=== PATIENT | male | born 1975 | race Caucasian/White ===

== ENCOUNTER 2018-12-29 08:54 | Emergency (ER) | payer BC ==
--- NOTE | 2018-12-29 09:01 | UC ---
Skin Complaint HPI - HPI Summary HPI Summary: 43 yo male presents with rash to left thigh. He tells me that about 10-12 days ago he was bitten by a tick in this area. He removed the tick, but was unsure how long it was attached. Did not think it was engorged. This morning he noticed a red ring rash to the site. He has had lyme disease before and states he thinks this is the bull's eye rash. He is feeling well otherwise and denies fever, pain, headache, fatigue. - History of Current Complaint Time Seen by Provider: 12/29/18 09:00 Stated Complaint: TICK BITE LT LEG Hx Obtained From: Patient Onset/Duration: Sudden Onset Current Severity: None - Allergy/Home Medications Allergies/Adverse Reactions: Allergies Allergy/AdvReac Type Severity Reaction Status Date / Time Sulfa (Sulfonamide Allergy Hives Verified 12/29/18 09:10 Antibiotics) nitrites Allergy Severe Nausea Uncoded 05/04/13 08:00 PMH/Surg Hx/FS Hx/Imm Hx - Additional Past Medical History Additional PMH: None - Surgical History Surgical History: Yes Surgery Procedure, Year, and Place: R elbow bone chip - Family History Known Family History: Positive: None - Social History Occupation: Employed Full-time Lives: With Family Alcohol Use: Occasionally Substance Use Type: None Smoking Status (MU): Never Smoked Tobacco Review of Systems All Other Systems Reviewed And Are Negative: Yes Constitutional: Positive: Negative Skin: Positive: Other - Tick bite Respiratory: Positive: Negative Cardiovascular: Positive: Negative Neurovascular: Positive: Negative Neurological: Positive: Negative Psychological: Positive: Negative Physical Exam - Summary Physical Exam Summary: GENERAL: NAD. WDWN. No pain distress. SKIN: Left proximal posterior thigh with 5.0cm diameter bull's eye rash. Mildly erythematous ring with central clearing. NTTP. No warmth, edema, or abscess appreciated. NECK: Supple. Nontender. No lymphadenopathy. CHEST: No accessory muscle use. Breathing comfortably and in no distress. CV: Pulses intact. Cap refill <2seconds NEURO: Alert. PSYCH: Age appropriate behavior. Triage Information Reviewed: Yes Vital Signs: Vital Signs: Temp Pulse Resp BP Pulse Ox 96.5 F 60 18 125/77 98 12/29/18 09:05 12/29/18 09:05 12/29/18 09:05 12/29/18 09:05 12/29/18 09:05 Vital Signs Reviewed: Yes Course/Dx - Course Course Of Treatment: Bull's eye rash s/p tick bite. Discussed with pt. Will start him with doxycycline for 2 weeks to treat for lyme disease. - Diagnoses Provider Diagnosis: Lyme disease Discharge - Sign-Out/Discharge Documenting (check all that apply): Patient Departure All imaging exams completed and their final reports reviewed: No Studies - Discharge Plan Condition: Stable Disposition: HOME Prescriptions: DOXYcycline CAP(*) [DOXYcycline 100MG CAP(*)] 100 mg PO BID #28 cap Patient Education Materials: Lyme Disease (ED), Tick Bite (ED) Referrals: Yunior Harrison MD [Primary Care Provider] - Additional Instructions: If you develop a fever, shortness of breath, chest pain, new or worsening symptoms - please call your PCP or go to the ED immediately. - Billing Disposition and Condition Condition: STABLE Disposition: Home
[2018-12-29 09:10] VITALS: BP 125/77
== END 2018-12-29 09:15 | disposition home or self-care (01) ==
LOC: UCEAST 08:54
DX: A69.20 Lyme disease, unspecified (principal); Z88.2 Allergy status to sulfonamides
CPT/HCPCS: 99202; G0463

== ENCOUNTER 2019-08-16 15:16 | Emergency (ER) | payer BC ==
[2019-08-16 15:30] VITALS: BP 156/79
[2019-08-16] MEDS ORDERED: Lidocaine 1% MPF ** 5 ML VIAL INJ ONE (15:40)
--- NOTE | 2019-08-16 15:43 | UC ---
Hand/Wrist HPI - HPI Summary HPI Summary: 43-year-old male comes in with a chief complaint of infected right middle finger. Patient reports he bites his finger nails. He has swelling and pain in the area. he tried to pop it with a needle but didn't work. No fevers and no chills no decreased sensation has full range of motion full-strength. - History Of Current Complaint Chief Complaint: UCUpperExtremity Stated Complaint: INFECTED FINGER Time Seen by Provider: 08/16/19 15:35 Pain Intensity: 2 - Allergies/Home Medications Allergies/Adverse Reactions: Allergies Allergy/AdvReac Type Severity Reaction Status Date / Time Sulfa (Sulfonamide Allergy Hives Verified 08/16/19 15:27 Antibiotics) nitrites Allergy Severe Nausea Uncoded 08/16/19 15:27 Home Medications: Home Medications DOXYcycline CAP(*) [DOXYcycline 100MG CAP(*)] 100 mg PO BID #20 cap 08/16/19 [Rx ] Mupirocin 1 applic TOPICAL BID #22 gm 08/16/19 [Rx] PMH/Surg Hx/FS Hx/Imm Hx Previously Healthy: Yes - Surgical History Surgical History: Yes Surgery Procedure, Year, and Place: R elbow bone chip - Family History Known Family History: Positive: None - Social History Alcohol Use: Weekly Substance Use Type: None Smoking Status (MU): Never Smoked Tobacco Review of Systems All Other Systems Reviewed And Are Negative: Yes Constitutional: Positive: Negative Skin: Positive: Other - see hpi Eyes: Positive: Negative ENT: Positive: Negative Respiratory: Positive: Negative Cardiovascular: Positive: Negative Gastrointestinal: Positive: Negative Motor: Positive: Negative Neurovascular: Positive: Negative Musculoskeletal: Positive: Negative Neurological/Mental Status: Positive: Negative Psychological: Positive: Negative Is Patient Immunocompromised?: No Physical Exam Triage Information Reviewed: Yes Appearance: Well-Appearing, No Pain Distress, Well-Nourished Vital Signs: Initial Vital Signs Temp 98.3 F 08/16/19 15:27 Pulse 69 08/16/19 15:27 Resp 18 08/16/19 15:27 BP 156/79 08/16/19 15:27 Pulse Ox 100 08/16/19 15:27 Vital Signs Reviewed: Yes Eye Exam: Normal Eyes: Positive: Conjunctiva Clear Neck: Positive: Supple Respiratory: Positive: No respiratory distress Musculoskeletal: Positive: Strength Intact, ROM Intact Neurological: Positive: Alert, Muscle Tone Normal Psychological: Positive: Age Appropriate Behavior Skin: Positive: Other - Right middle finger has a paronychia with swelling and erythema around the base of the fingernail. There is minimal swelling of the pad of the finger but it's not firm. Fingers full range of motion full- strength there is no drainage. No streaking. Procedures - Incision and Drainage Right Finger Site: right middle finger paronychia Anesthesia: Local, Lidocaine - with 1% Instrument(s): Scalpel - culture obtained Packing: Other - none Hand/Wrist Course/Dx - Course Course Of Treatment: Small amount of pus and blood came out during the incision and drainage which I did culture. Plan is to treat with topical mupirocin and by mouth doxycycline. Patient will follow-up with orthopedics hands if not improving or worse. Or they can return here for not improving or worse. - Differential Dx/Diagnosis Provider Diagnosis: Paronychia of right middle finger Discharge ED - Sign-Out/Discharge Documenting (check all that apply): Patient Departure All imaging exams completed and their final reports reviewed: No Studies - Discharge Plan Condition: Stable Disposition: HOME Prescriptions: DOXYcycline CAP(*) [DOXYcycline 100MG CAP(*)] 100 mg PO BID #20 cap Mupirocin 1 applic TOPICAL BID #22 gm Patient Education Materials: Paronychia (ED) Referrals: Abhijeet Lopez MD [Primary Care Provider] - Fabienne Chaparro MD [Medical Doctor] - Additional Instructions: FOLLOW UP WITH DR CHAPARRO, ORTHOPEDICS, IF NOT COMPLETELY IMPROVED. GET REEVALUATED SOONER IF NOT IMPROVED OR WORSE OR ANY QUESTIONS OR CONCERNS. - Billing Disposition and Condition Condition: STABLE Disposition: Home
== END 2019-08-16 16:40 | disposition home or self-care (01) ==
LOC: UCEAST 15:16
DX: L03.011 Cellulitis of right finger (principal); Z88.2 Allergy status to sulfonamides; Z91.09 Other allergy status, other than to drugs and biological substances
CPT/HCPCS: 10060; 87070; 87077; 87205; 99212; G0463